=== PATIENT | male | born 2000 | race Caucasian/White ===

== ENCOUNTER 2022-09-10 18:17 | Emergency (ER) | payer OTHER ==
[~2022-09-10] VITALS: Ht 170.2 cm; Wt 83.9 kg
[~2022-09-10 18:17] MED LIST: ACET325UDC PO; ALBU90OI INH; AMOX50SU PO; CEPH250SUA PO; CODACEE120 PO; ONDA4 PO; ONDA4ODT MM; ONDA4SO PO; PENVK250SU PO; Sudogest30 MG PO; [UNRECOGNIZED DRUG - CODE] PO
[2022-09-10 18:27] VITALS: BP 144/99
[2022-09-10] MEDS ORDERED: BACTRIM DS TAB1 EAC1 PO (19:41)
[2022-09-10] MEDS ORDERED: CEPH500 PO (19:41)
== END 2022-09-10 19:47 | disposition home or self-care (01) ==
LOC: ER 18:17
DX: L03.114 Cellulitis of left upper limb (principal)
CPT/HCPCS: 99283; A9270

== ENCOUNTER 2025-02-04 15:30 | Observation (INO) | payer OTHER ==
[~2025-02-04] VITALS: Ht 172.7 cm; Wt 89.6 kg
[2025-02-04] VITALS (16 sets, daily range): BP systolic 105–161; BP diastolic 60–86
--- NOTE | 2025-02-04 14:50 | NUR ---
ARRIVAL TO SURGICAL UNIT ALERT, ORIENTED, & PLEASANT. REPORTS COMING FROM THE URGENT CARE. C/O ABD PAIN. DENIES N/V. MOTHER AT SIDE. IND IN ROOM. NPO. WILL NOTIFIY DR MONAHAN.
[~2025-02-04 15:30] MED LIST changes: -Norco 5-325 Ta1 EACH PO
[2025-02-04] MEDS ORDERED: FentaNYL Citrate 50 MCG/ML 2 ML Injection IV ONE (16:00)
--- NOTE | 2025-02-04 16:12 | NUR ---
TO DAY SURGERY VIA WC
[2025-02-04] MEDS ORDERED: Ampicillin Sod/Sulbactam Sod 3 GM in NS 100 ML IV ONE (16:35)
[2025-02-04] MEDS ORDERED: Bupivacaine 0.5% HCl 5 MG/ML 30MLVIAL INJ ONE (16:55)
[2025-02-04] MEDS ORDERED: HYDROmorphone HCl/Pf 1MG SYR IV PRN ×2 (17:00)
[2025-02-04] MEDS ORDERED: Metoclopramide HCl 5MG / ML 2ML Vial IV PRN (17:00)
[2025-02-04] MEDS ORDERED: FentaNYL Citrate 50 MCG/ML 2 ML Injection IV PRN ×3 (17:00→18:00)
[2025-02-04] MEDS ORDERED: FentaNYL Citrate 50 MCG/ML 2 ML Injection ONE (17:54)
[2025-02-04] MEDS ORDERED: HYDROcodone 5-APAP 325 TAB PO PRN (18:00)
[2025-02-04] MEDS ORDERED: Ondansetron HCl 2 MG / ML 2ML Vial IV PRN (18:00)
[2025-02-04] MEDS ORDERED: FLU VACC TS2025-26(6MOS UP)/PF 45 MCG/0.5 ML SYRINGE IM SCH (18:00)
[2025-02-04] MEDS ORDERED: HYDROmorphone HCl/Pf 1MG SYR ONE (18:05)
--- NOTE | 2025-02-04 18:50 | NUR ---
POST OP RETURN TO SURGICAL UNIT VIA GOURNEY, ABLE TO TRANSFER SELF TO HOSPITAL BED. ALERT & ORIENTED. ABD SOFT w/ LAP SITES x 3; GAUZE & TEGADERM w/ NO DRNG. DENIES N/V. SNACKS & DRINKS GIVEN. WILL MEDICATE FOR PAIN AFTER SNACKS TAKEN IN.
--- NOTE | 2025-02-05 03:51 | NUR ---
NOC SUMMARY- PT PAIN MANAGED WELL. PT IS TOLERATING PO AND VOIDING. PT AMBULATING. PT RESTING QUIETLY. CALL LIGHT IN REACH.
[2025-02-05 05:24] VITALS: BP 134/61
[2025-02-05 07:52] VITALS: BP 129/59
[2025-02-05] MEDS ORDERED: Norco 5-325 Ta1 EACH PO (11:08)
--- NOTE | 2025-02-05 11:20 | NUR ---
DISCHARGE EATING, DRINKING, VOIDING, & AMBULATING EASILY. PAIN CONTROLLED TO PTs SATISFACTION. Rx GIVEN. DECLINES WC OUT & ABULATED OUT w/ MOM.
== END 2025-02-05 12:08 | disposition home or self-care (01) ==
LOC: SURS 15:30
PROVIDERS: ADMIT Surgery
PROC: 0DTJ4ZZ Resection of Appendix, Percutaneous Endoscopic Approach (ICD-10-PCS; principal; 2025-02-04 16:30)
DX: K35.30 Acute appendicitis with localized peritonitis, without perforation or gangrene (principal)
CPT/HCPCS: 88304; A9270; J0295; J1171; J3010; J7120

== ENCOUNTER → 2025-02-04 | Outpatient (CLI) | payer OTHER ==
[~2025-02-04] MED LIST changes: +BACTRIM DS TAB1 EAC1 PO; +CEPH500 PO; +Norco 5-325 Ta1 EACH PO
[2025-02-04 09:09] LABS: BASOPHILS ABSOLUTE AUTO 0.05 K/mm3 (0.00-0.23); BASOPHILS PERCENT AUTO 1 % (0-2); EOSINOPHILS ABSOLUTE AUTO 0.22 K/mm3 (0.00-0.68); EOSINOPHILS PERCENT AUTO 3 % (0-6); Hematocrit 44.8 % (37.0-53.0); Hemoglobin 15.4 g/dL (13.5-17.5); IMMATURE GRAN ABSOLUTE AUTO 0.03 K/mm3 (0.00-0.10); IMMATURE GRAN PERCENT AUTO 0 % (0-1); LYMPHOCYTES ABSOLUTE AUTO 2.68 K/mm3 (0.84-5.20); LYMPHOCYTES PERCENT AUTO 30 % (21-46); MONOCYTES ABSOLUTE AUTO 0.73 K/mm3 (0.16-1.47); MONOCYTES PERCENT AUTO 8 % (4-13); Mean Corpuscular HGB Conc 34.4 g/dL (31.5-36.5); Mean Corpuscular Volume 89 fL (80-100); NEUTROPHILS ABSOLUTE AUTO 5.13 K/mm3 (1.96-9.15); NEUTROPHILS PERCENT AUTO 58 % (41-73); NRBC ABSOLUTE 0.00 K/mm3 (0.00-0.02); NRBC Auto 0.0 /100 WBC (0.0-0.2); Platelet Count 247 K/mm3 (150-400); RDW Coefficient Variation 13.2 % (11.7-14.2); RDW Standard Deviation 43.3 fL (35.1-46.3)
[2025-02-04 09:23] LABS: Alanine Aminotransfer (ALT/SGP 30.0 U/L (12-78); Albumin, Blood 4.3 g/dL (3.4-5.0); Albumin/Globulin Ratio 1.3 (0.8-1.8); Anion Gap 14.0 mmol/L (3-11); Aspartate Aminotrans (AST/SGOT 23.0 U/L (12-37); Bilirubin, Total 1.3 mg/dL (0.1-1.0); Blood Urea Nitrogen 15.0 mg/dL (8-24); CO2, Blood 28.0 mmol/L (21-32); Calcium, Blood 9.0 mg/dL (8.5-10.1); Chloride, Blood 102.0 mmol/L (98-108); Creatinine, Blood 1.09 mg/dL (0.60-1.20); Globulin, Blood 3.4 g/dL (2.2-4.0); Glucose, Blood 90.0 mg/dL (70-99); Potassium, Blood 3.6 mmol/L (3.5-5.5); Sodium, Blood 140.0 mmol/L (136-145); Total Protein, Blood 7.7 g/dL (6.4-8.2)
== END ==
LOC: LAB SHORT 09:05 → LAB 09:05
PROVIDERS: Physician Assistant
DX: R10.9 Unspecified abdominal pain (principal)
CPT/HCPCS: 80053; 83690; 85025